=== PATIENT | male | born 1980 | race Caucasian/White ===

== ENCOUNTER 2017-02-03 16:20 | Inpatient (IN) | payer BC ==
--- NOTE | ~2017-02-03 | CN ---
Consultation Report [facility] [address] [place]. [address] NAME: ROSAURA HAYWARD : 76 STATUS : ADM IN PAT#: [id number] AGE: 36 ADM/REG DATE : 02/03/17 MR#: [id number] REPORT SERV DATE: 02/03/17 DICTATED BY: THOMAS MAX DATE: 02/03/17 REPORT STATUS : Draft TRANSCRIBED BY: MODL DATE: 02/03/17 EP CONSULTATION DATE OF CONSULTATION: INDICATION: Complete heart block, BENJAMIN generator. HISTORY: The patient is a 36-year-old white male with a history of congenital AV block status post pacemaker by Dr. Mitchell. His initial device apparently was a [employer] device, subsequent generator was [employer]. He has reached BENJAMIN at this time. He has noted a decrease in stamina and mild dizziness. No chest discomfort or other symptoms. CURRENT HOME MEDICATIONS: None. ALLERGIES OR INTOLERANCES: None. SOCIAL HISTORY: , employed, negative for tobacco use. FAMILY HISTORY: Noncontributory. PAST MEDICAL HISTORY/REVIEW OF SYSTEMS: Negative except for the congenital heart block. PHYSICAL EXAMINATION: GENERAL: A 36-year-old white male. VITAL SIGNS: Pulse 50, blood pressure 110/80. SKIN: No xanthelasmas. HEENT: Normocephalic. There is no pallor. Sclerae white. NECK: JVD is not elevated. CHEST: No crackles. CARDIAC: S1 variable, S2 is physiologically split. No murmurs. ABDOMEN: Soft. EXTREMITIES: Without edema. No clubbing. NEUROLOGIC: No focal deficits. IMPRESSION: BENJAMIN generator with underlying complete heart block. PLAN: Generator replacement. See orders. TRACE/MODL Consultation Report [address] [place]. [address] NAME: ROSAURA HAYWARD : 76 STATUS : ADM IN PAT#: [id number] AGE: 36 ADM/REG DATE : 02/03/17 MR#: [id number] REPORT SERV DATE: 02/03/17 DICTATED BY: THOMAS MAX DATE: 02/03/17 REPORT STATUS : Draft TRANSCRIBED BY: VIVEK DATE: 02/03/17 Thomas Max M.D. / [id number] CC: Ta Reed III, M.D., [facility], [facility]
[2017-02-03 18:02] LABS: BASOPHILS 0.4 %; BASOPHILS ABSOLUTE 0.03 10/3/uL (0.0-0.16); EOSINOPHILS 1.2 %; EOSINOPHILS ABSOLUTE 0.09 10/3/uL (0.0-0.53); HEMATOCRIT 43.5 % (40.0-51.0); HEMOGLOBIN 15.1 g/dL (13.6-17.8); IMMATURE GRANULOCYTES 0.3 %; IMMATURE GRANULOCYTES ABSOLUTE 0.02 10/3/uL (0.0-0.11); LYMPHOCYTES 28.3 %; LYMPHOCYTES ABSOLUTE 2.04 10/3/uL (0.67-4.30); MEAN CORPUS HGB CONC 34.7 g/dL (32.0-36.0); MEAN CORPUSCULAR HEMOGLOB 30.9 pg (26.0-34.0); MEAN PLATELET VOLUME 10.1 fL (9.2-13.0); MONOCYTES 8.3 %; NEUTROPHILS 61.5 %; NEUTROPHILS ABSOLUTE 4.44 10/3/uL (2.02-8.40); PLATELET COUNT 218 10/3/uL (150-400); RED CELL COUNT 4.89 10/6/uL (4.7-6.1); WHITE BLOOD CELLS 7.2 10/3/uL (4.5-10.5)
[2017-02-03 18:05] LABS: MANUAL DIFF NO %
[2017-02-03 18:11] LABS: PARTIAL THROMBO TIME 25.4 SEC (22.5-37.2); PROTIME (NOT ORD) 13.2 SEC (12.0-14.5)
[2017-02-03 18:17] LABS: ALBUMIN 3.8 G/DL (3.5-5.0); ALKALINE PHOSPHATASE 47 U/L (45-117); BUN (BLOOD UREA NITROGEN) 18 MG/DL (6-23); CALCIUM, SERUM 8.9 MG/DL (8.5-10.4); CHLORIDE, SERUM 105 MMOL/L (96-112); CO2 (CARBON DIOXIDE) 28 MMOL/L (24-34); CREATININE 1.03 MG/DL (0.70-1.30); GFR AFRICAN AMERICAN 106 ML/MIN (>=60); GFR NON AFRICAN AMERICAN 92 ML/MIN (>=60); GLOBULIN 3.7 G/DL (2.5-4.1); GLUCOSE, SERUM 76 MG/DL (60-99); POTASSIUM, SERUM 4.3 MMOL/L (3.5-5.3); SGPT(ALT) 30 U/L (5-65); SODIUM, SERUM 142 MMOL/L (135-148); TOTAL BILIRUBIN 0.4 MG/DL (0-1.2); TOTAL PROTEIN 7.5 G/DL (6.0-8.5)
[2017-02-03 18:18] LABS: SGOT(AST) 19 U/L (5-40)
[2017-02-04 06:25] LABS: BASOPHILS 0.3 %; BASOPHILS ABSOLUTE 0.02 10/3/uL (0.0-0.16); EOSINOPHILS 2.1 %; EOSINOPHILS ABSOLUTE 0.14 10/3/uL (0.0-0.53); HEMOGLOBIN 14.8 g/dL (13.6-17.8); IMMATURE GRANULOCYTES 0.3 %; IMMATURE GRANULOCYTES ABSOLUTE 0.02 10/3/uL (0.0-0.11); LYMPHOCYTES 29.9 %; LYMPHOCYTES ABSOLUTE 2.03 10/3/uL (0.67-4.30); MEAN CORPUS HGB CONC 34.4 g/dL (32.0-36.0); MEAN CORPUSCULAR HEMOGLOB 30.8 pg (26.0-34.0); MEAN CORPUSCULAR VOLUME 89.6 fL (80-100); MONOCYTES 9.4 %; MONOCYTES ABSOLUTE 0.64 10/3/uL (0.21-1.20); NEUTROPHILS ABSOLUTE 3.95 10/3/uL (2.02-8.40); PLATELET COUNT 210 10/3/uL (150-400); RBC DISTRIBUTION WIDTH 13.1 % (12.0-16.0); WHITE BLOOD CELLS 6.8 10/3/uL (4.5-10.5)
[2017-02-04 06:28] LABS: MANUAL DIFF NO %
[2017-02-04 06:38] LABS: BUN (BLOOD UREA NITROGEN) 20 MG/DL (6-23); CALCIUM, SERUM 8.7 MG/DL (8.5-10.4); CHLORIDE, SERUM 103 MMOL/L (96-112); CO2 (CARBON DIOXIDE) 26 MMOL/L (24-34); CREATININE 1.08 MG/DL (0.70-1.30); GFR AFRICAN AMERICAN 100 ML/MIN (>=60); GFR NON AFRICAN AMERICAN 87 ML/MIN (>=60); GLUCOSE, SERUM 94 MG/DL (60-99); POTASSIUM, SERUM 3.9 MMOL/L (3.5-5.3); SODIUM, SERUM 140 MMOL/L (135-148)
[2017-02-04] MEDS ORDERED: NORCO1 TA1 PO (16:58)
== END 2017-02-04 17:36 | disposition home or self-care (01) | DRG 259 ==
LOC: 7NO 16:20
PROVIDERS: Internal Medicine Cardiovascular Disease; Internal Medicine Clinical Cardiac Electrophysiology
PROC: 0JPT0PZ Removal of Cardiac Rhythm Related Device from Trunk Subcutaneous Tissue and Fascia, Open Approach (ICD-10-PCS; principal; 2017-02-04)
PROC: 0JH606Z Insertion of Pacemaker, Dual Chamber into Chest Subcutaneous Tissue and Fascia, Open Approach (ICD-10-PCS; 2017-02-04)
DX: Q24.6 Congenital heart block (principal); E66.9 Obesity, unspecified; Z68.35 Body mass index [BMI] 35.0-35.9, adult
CPT/HCPCS: 33228; 80048; 80053; 83735; 85025; 85610; 85730; 93005; C1785; J0690; J2250; J3010